=== PATIENT | male | born 1935 | race Caucasian/White ===

== ENCOUNTER → 2023-09-19 07:21 | Outpatient (REF) | payer MEDICARE, OTHER, SELFPAY ==
[2023-09-19 09:05] LABS: ALT (SGPT) 20 U/L (0-50); AST (SGOT) 24 U/L (17-59); Albumin 3.9 g/dl (3.5-5.0); Alkaline Phosphatase 48 U/L (38-126); Blood Urea Nitrogen 23 mg/dl (9-20); Calcium 9.7 mg/dl (8.4-10.2); Carbon Dioxide 22 mmol/L (22-30); Chloride 108 mmol/L (98-107); Glucose 97 mg/dl (70-99); Potassium 4.3 mmol/L (3.5-5.1); Sodium 139 mmol/L (135-145); Total Bilirubin 0.7 mg/dl (0.2-1.3); Total Protein 6.3 g/dl (6.3-8.2); Uric Acid 9.1 mg/dl (3.5-8.5); eGFR 52.84
== END ==
LOC: REG 07:21
PROVIDERS: ATTENDING PHYSICIAN Internal Medicine
DX: Z87.448 Personal history of other diseases of urinary system (principal); M10.9 Gout, unspecified
CPT/HCPCS: 36415; 80053; 84550

== ENCOUNTER 2024-04-26 13:04 | Emergency (ER) | payer MEDICARE, OTHER, SELFPAY ==
[2024-04-26 13:06] VITALS: BP 136/96
--- NOTE | 2024-04-26 13:10 | ED.GENMED ---
ED Provider Triage
<Rajiv Vizcarra PA-C - Last Filed: 04/26/24 13:12>
-
Patient seen by provider in Triage?: Seen in Triage
89-year-old male presents for evaluation after a fall. He fell forward yesterday and today. He slipped on ice yesterday and felt unsteady today. He hit his face but landed on his and he felt like there was some swelling in that area. Seen by
interior decorator paperhanging today for his eye swelling but sent here for further evaluation. He does note persistent pain to these areas no anticoagulants.
Vital signs are stable through triage. Patient is swollen around the right side of the face with periorbital ecchymosis. He also has tenderness with mild swelling to the right upper chest. Not hypoxic no respiratory distress
Order CT of head face and chest and cervical spine
Seen by healthcare provider at triage but warrants further assessment
History of Present Illness
<Rajiv Vizcarra PA-C - Last Filed: 04/26/24 13:12>
General
Chief Complaint: Fall
Time Seen by Provider: 04/26/24 13:32
<Matt Garrett DO - Last Filed: 04/26/24 15:47>
History of Present Illness
History of Present Illness:
TIME OF INITIAL ENCOUNTER: 1:30 PM
HPI: The patient slept and fell on ice yesterday. He struck the right side of his head/face. His eye was so swollen this morning that he fell again due to poor vision. He went to see an interior decorator paperhanging who wanted him to come here for further
evaluation. When he fell this morning, he struck the right side of his chest. He had rather significant swelling initially which has markedly improved and currently the pain is down to a 1 or 2 out of 10 at the chest.
EXAM:
GENERAL: Fair and overall appearance, appears somewhat weak
CERVICAL SPINE: No midline c-spine tenderness with excellent AROM
HEAD: There is no significant tenderness in the right orbital region, no tenderness over the right zygoma, there is moderate periorbital ecchymosis to the right eye with minimal edema, no hyphema
CHEST: No significant chest wall tenderness, normal heart sounds
LUNGS: Equal lung sounds, no respiratory distress
ABDOMEN: No abdominal tenderness, no peritoneal signs
EXTREMITIES: Normal active range of motion, no tenderness
NEURO: Excellent strength all extremities, appropriate mental status, normal speech/language
NUMBER AND COMPLEXITY OF PROBLEMS ADDRESSED AT THE ENCOUNTER
� Chronic conditions affecting care: High blood pressure, hyperlipidemia
� Acute Exacerbation and/or Progression of Chronic Illness: This is an acute problem
� Differential Diagnosis includes: Head/facial injury, chest wall contusion, low suspicion for rib fracture, low suspicion for facial fracture or intracranial hemorrhage
AMOUNT AND/OR COMPLEXITY OF DATA TO BE REVIEWED AND ANALYZED
� I performed an independent evaluation of and my interpretation is:
EKG: Sinus 99, left axis deviation, poor R wave progression
CT: CAT scan of the brain shows no acute abnormality, but old lacunar noted, CT face shows no facial bone fractures, CT chest shows no acute abnormality
X-rays:
Laboratory Studies: White count and hemoglobin are normal, BUN 24, creatinine 1.3, otherwise chemistries relatively unremarkable
Other:
� Review of other/old records: I reviewed records, the patient had colonoscopy in 2019
� Clinical information was obtained by an independent historian: I spoke to the at bedside
� Prescriptions/Medications Considered but not given:
� Further testing considered but not performed:
RISK OF COMPLICATIONS AND/OR MORBIDITY OR MORTALITY OF PATIENT MANAGEMENT
� Social determinants of health affecting care: Lives at home
� Discussion with other providers:
� Escalation of care including admission/observation vs risk of discharge considered: Labs were obtained from triage. Borderline renal insufficiency but similar to prior. CBC unremarkable. The patient was sent here by his
interior decorator paperhanging for further evaluation. CT imaging reassuring. He appears very comfortable. The earlier chest wall is spontaneously improved regarding the swelling.
ANY OTHER UPDATES:
3:41 PM: I reassessed patient. The patient continues to improve regarding his right eye swelling. CT imaging reassuring. 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
stroke in the past. He does have a history of high blood pressure.
Past History
<Rajiv Vizcarra PA-C - Last Filed: 04/26/24 13:12>
Past History
ED Past Medical History: HTN and Hypercholesterolemia
ED Past Surgical History: Appendectomy and Other (Hernia repair)
Social History
Tobacco: Non-smoker
Personal:
Living: with family
Employment: Retired
Phy Exam
<Matt Garrett DO - Last Filed: 04/26/24 15:47>
Physical Exam
Physical Exam:
See HPI
Course
<Rajiv Vizcarra PA-C - Last Filed: 04/26/24 13:12>
Orders/Labs/Results
Orders:
Orders
04/26/24 13:06
CT Chest With Iv Contrast Urgent
Comment:
Reason For Exam: right chest pain after fall
CT Facial Bones W/o Iv Contras Urgent
Comment:
Reason For Exam: fall
04/26/24 13:07
CT Head W/o Iv Contrast Urgent
Comment:
Reason For Exam: fall
04/26/24 13:08
Electrocardiogram (*1) Urgent
Reason for Study: Chest Pain
EKG- Treatment ONCE
04/26/24 13:34
Complete Blood Count/With Diff Urgent
Comprehensive Metabolic Panel Urgent
Abnormal Lab Results
04/26/24
13:34
RBC 4.39 L 10^6/uL
(4.70-6.10)
MCV 96.4 H fL
(80.0-94.0)
MCH 34.6 H pg
(27.0-31.0)
Abs Immat Gran (auto) 0.1 H 10^3/uL
(0-0.05)
Absolute Monos (auto) 0.8 H 10^3/uL
(0.1-0.6)
Immature Gran % 0.6 H %
(0-0.5)
Lymphocytes % 14.3 L %
(20.5-51.1)
Carbon Dioxide 21 L mmol/L
(22-30)
BUN 24 H mg/dl
(9-20)
Glucose 120 H mg/dl
(70-99)
04/26/24 13:34
04/26/24 13:34
Vital Signs
Initial and Last Documented VS:
Initial Vital Signs
Temp Pulse Resp BP Pulse Ox
36.9 C 97 18 136/96 97
04/26/24 13:06 04/26/24 13:06 04/26/24 13:06 04/26/24 13:06 04/26/24 13:06
Last Documented Vital Signs
Temp Pulse Resp BP Pulse Ox
36.9 C 97 18 136/96 97
04/26/24 13:06 04/26/24 13:06 04/26/24 13:06 04/26/24 13:06 04/26/24 13:06
<Matt Garrett, DO - Last Filed: 04/26/24 15:47>
Orders/Labs/Results
Orders:
Orders
04/26/24 13:06
CT Chest With Iv Contrast Urgent
Comment:
Reason For Exam: right chest pain after fall
CT Facial Bones W/o Iv Contras Urgent
Comment:
Reason For Exam: fall
04/26/24 13:07
CT Head W/o Iv Contrast Urgent
Comment:
Reason For Exam: fall
04/26/24 13:08
Electrocardiogram (*1) Urgent
Reason for Study: Chest Pain
EKG- Treatment ONCE
04/26/24 13:34
Complete Blood Count/With Diff Urgent
Comprehensive Metabolic Panel Urgent
Abnormal Lab Results
04/26/24
13:34
RBC 4.39 L 10^6/uL
(4.70-6.10)
MCV 96.4 H fL
(80.0-94.0)
MCH 34.6 H pg
(27.0-31.0)
Abs Immat Gran (auto) 0.1 H 10^3/uL
(0-0.05)
Absolute Monos (auto) 0.8 H 10^3/uL
(0.1-0.6)
Immature Gran % 0.6 H %
(0-0.5)
Lymphocytes % 14.3 L %
(20.5-51.1)
Carbon Dioxide 21 L mmol/L
(22-30)
BUN 24 H mg/dl
(9-20)
Glucose 120 H mg/dl
(70-99)
04/26/24 13:34
04/26/24 13:34
Vital Signs
Initial and Last Documented VS:
Initial Vital Signs
Temp Pulse Resp BP Pulse Ox
36.9 C 97 18 136/96 97
04/26/24 13:06 04/26/24 13:06 04/26/24 13:06 04/26/24 13:06 04/26/24 13:06
Last Documented Vital Signs
Temp Pulse Resp BP Pulse Ox
36.9 C 97 18 136/96 97
04/26/24 13:06 04/26/24 13:06 04/26/24 13:06 04/26/24 13:06 04/26/24 13:06
<Matt Garrett DO - Last Filed: 04/26/24 15:47>
*Critical Care Note
Total Time (30-74mins, 75-104mins- exclusive of procedures): Not Applicable
ED Attending Note
<Rajiv Vizcarra PA-C - Last Filed: 04/26/24 13:12>
-
Portions of this chart may have been created with voice recognition software.� Occasional wrong word or��sound alike� substitutions may have occurred due to the inherent limitations of voice recognition software.
Discharge Plan
Departure
Prescriptions:
No Action
rabies vacc,human diploid (PF) [Imovax Rabies Vaccine (PF)] 1 ML recon soln
1 ml IM . DIRECTED Qty: 3 0RF
Rx Instructions:
See Rabies Vaccine Post Exposure Prophylaxis Instruction Sheet for Dosing Instructions
simvastatin 10 MG tablet
10 mg PO DAILY
bu-me-NP-vit [id number] [Ocuvite Eye Plus Multi] 1 EACH tablet
1 tab PO DAILY
Referrals:
Octaviano Carver MD [Family Provider] -
Interventions
Interventions:
*Risk Screen - Suicide Last Done: 04/26/24 13:06
*General Assessment Last Done: 04/26/24 13:06
*Neglect/Abuse Screening Last Done: 04/26/24 13:06
ED-Musculoskeletal Assessment Last Done: 04/26/24 13:37
ED- Neurological Assessment Last Done: 04/26/24 13:37
ED-Skin Assessment Last Done: 04/26/24 13:37
Discharge Date and Time
Print Language: CROATIAN
[2024-04-26 13:37] VITALS: BMI 32.4
[2024-04-26 13:55] LABS: % Basophils 0.5 % (0-2); % Eosinophils 0.9 % (0-6); % Immature Granulocytes 0.6 % (0-0.5); % Lymphocytes 14.3 % (20.5-51.1); % Monocytes 8.6 % (1.7-9.3); % Neutrophils 75.1 % (42.2-75.2); Absolute Eosinophils 0.1 10^3/uL (0-0.7); Absolute Immature Granulocytes 0.1 10^3/uL (0-0.05); Absolute Lymphocytes 1.2 10^3/uL (1.2-3.4); Absolute Monocytes 0.8 10^3/uL (0.1-0.6); Absolute Neutrophils 6.5 10^3/uL (1.4-6.5); Hematocrit 42.3 % (39.0-52.0); Hemoglobin 15.2 g/dL (13.0-18.0); Mean Corp Hgb Conc. 35.9 g/dL (33.0-37.0); Mean Corpuscular Hgb 34.6 pg (27.0-31.0); Mean Corpuscular Volume 96.4 fL (80.0-94.0); Nucleated Red Blood Cells % 0 % (-); Red Blood Cell Count 4.39 10^6/uL (4.70-6.10); Red Cell Dist. Width 13.2 % (11.5-14.5); White Blood Cell Count 8.7 10^3/uL (4.8-10.8)
[2024-04-26 13:57] LABS: ALT (SGPT) 29 U/L (0-50); AST (SGOT) 37 U/L (17-59); Albumin 4.3 g/dl (3.5-5.0); Alkaline Phosphatase 54 U/L (38-126); Blood Urea Nitrogen 24 mg/dl (9-20); Calcium 9.5 mg/dl (8.4-10.2); Carbon Dioxide 21 mmol/L (22-30); Chloride 104 mmol/L (98-107); Estimated Creatinine Clearance 48 ml/min; Glucose 120 mg/dl (70-99); Potassium 3.8 mmol/L (3.5-5.1); Sodium 137 mmol/L (135-145); Total Protein 6.6 g/dl (6.3-8.2); eGFR 52.51
[2024-04-26 16:00] VITALS: BP 165/54
== END 2024-04-26 16:04 | disposition home or self-care (01) ==
LOC: EMR 13:04
PROVIDERS: Physician Assistant; EMERGENCY PHYSICIAN Emergency Medicine; FAMILY PHYSICIAN Internal Medicine
DX: S00.11XA Contusion of right eyelid and periocular area, initial encounter (principal); W00.0XXA Fall on same level due to ice and snow, initial encounter; E78.00 Pure hypercholesterolemia, unspecified; I10 Essential (primary) hypertension; Z90.49 Acquired absence of other specified parts of digestive tract
CPT/HCPCS: 99284; 70450; 70486; 71260; 80053; 85025; 93005; Q9967